=== PATIENT | female | born 1980 | race African-American/Black ===

== ENCOUNTER 2018-08-30 21:00 | Emergency (ER) | payer OTHER ==
[~2018-08-30] VITALS: Ht 172.7 cm; Wt 81.0 kg
[2018-08-30 21:16] VITALS: BP 159/76
== END 2018-08-30 22:07 | disposition left against medical advice (07) ==
LOC: ER 21:00
DX: F41.9 Anxiety disorder, unspecified (principal); Z53.21 Procedure and treatment not carried out due to patient leaving prior to being seen by health care provider